=== PATIENT | female | born 1995 | race Caucasian/White ===

== ENCOUNTER 2020-02-09 21:18 | Inpatient (IN) ==
[2020-02-09 14:11] LABS: Candida DNA Not Detected (Not Detect); Gardnerella DNA Not Detected (Not Detect); Trichomonas DNA Not Detected (Not Detect)
[2020-02-09 14:43] LABS: Basophils % 0.2 %; Eosinophils # 0.1 K/mcL (0.0-0.6); Eosinophils % 0.5 %; Hematocrit 37.1 % (35.3-44.9); Hemoglobin 12.6 g/dL (11.5-15.4); Immature Granulocytes % 0.8 % (0-4); Lymphocytes # 1.6 K/mcL (0.6-4.6); Lymphocytes % 16.8 %; Mean Corpuscular Hemoglobin 31.3 pg (28.0-33.3); Mean Corpuscular Volume 92.1 fL (83.0-100.0); Mean Platelet Volume 8.9 fL (9.4-12.4); Monocytes # 0.4 K/mcL (0.0-1.3); Monocytes % 4.4 %; Neutrophils # 7.4 K/mcL (1.6-8.9); Platelet Count 240 K/mcL (140-400); Red Blood Count 4.03 M/mcL (3.82-4.97); Red Cell Distribution Width 14.2 % (11.5-14.5); Segmented Neutrophils % 77.3 %; White Blood Count 9.6 K/mcL (4.3-11.1)
[2020-02-09 14:51] LABS: Bacteria,Urine None Seen per hpf (None-Few); Bilirubin,Urine Negative (Negative); Blood,Urine Small (Negative); Clarity,Urine Clear (Clear); Color,Urine Yellow (Yellow); Glucose,Urine (UA) Normal (Normal); Hyaline Casts,Urine None Seen per lpf (None-Few); Ketones,Urine Negative (Negative); Leukocyte Esterase,Urine Small (Negative); Nitrite,Urine Negative (Negative); PH,Urine 7.5 pH Units (5.0-8.0); Protein,Urine Negative (Neg-Trace); RBC,Urine 0-3 per hpf (0-3); Specific Gravity,Urine 1.007 (1.010-1.025); Squamous Epithelial Cell,Urine Moderate per lpf (None-Few); Urobilinogen,Urine Normal (Normal); WBC,Urine 0-3 per hpf (0-3)
[2020-02-09 15:31] LABS: Activated Partial Thrombo Time 29.5 Seconds (26.0-36.0)
[2020-02-09 18:59] LABS: Amphetamine Screen,Urine Negative ng/mL (Cutoff=1000); Barbiturate Screen,Urine Negative ng/mL (Cutoff=200); Benzodiazepines Screen,Urine Negative ng/mL (Cutoff=200); Cannabinoid Screen,Urine Negative ng/mL (Cutoff = 50); Cocaine Screen,Urine Negative ng/mL (Cutoff= 300); Opiate Screen,Urine Negative ng/mL (Cutoff=300); Phencyclidine Screen,Urine Negative ng/mL (Cutoff=25)
[2020-02-09 21:09] LABS: Basophils % 0.3 %; Eosinophils % 0.3 %; Hematocrit 34.5 % (35.3-44.9); Hemoglobin 11.7 g/dL (11.5-15.4); Immature Granulocytes % 0.7 % (0-4); Lymphocytes # 1.9 K/mcL (0.6-4.6); Lymphocytes % 18.5 %; Mean Corpuscular HGB Conc 33.9 g/dL (31.6-35.5); Mean Corpuscular Hemoglobin 31.3 pg (28.0-33.3); Mean Corpuscular Volume 92.2 fL (83.0-100.0); Mean Platelet Volume 8.8 fL (9.4-12.4); Monocytes # 0.4 K/mcL (0.0-1.3); Monocytes % 3.8 %; Platelet Count 202 K/mcL (140-400); Red Blood Count 3.74 M/mcL (3.82-4.97); Red Cell Distribution Width 13.9 % (11.5-14.5); Segmented Neutrophils % 76.4 %; White Blood Count 10.4 K/mcL (4.3-11.1)
[~2020-02-09 21:18] MED LIST: Betamethasone Acet/SodPhos 30 MG/5 ML VIAL IM SCH; CeFAZolin 2,000 MG/50 ML BAG IVPB ONE; Famotidine 20 MG/2 ML VIAL IVP ONE; Metoclopramide 10 MG/2 ML VIAL IVP ONE; Ringers Solution, Lactated 1,000 ML IVC SCH
[2020-02-09] MEDS ORDERED: Oxytocin 20 units/ LR 1000 mL 20 UNIT/1,000 ML BAG IVC ONE (21:23)
[2020-02-09] MEDS ORDERED: *HR* Morphine Sulfate/PF 10 MG/10 ML AMPUL ONE (21:36)
[2020-02-09] MEDS ORDERED: *HR* FentaNYL (PF) 100 MCG/2 ML VIAL ONE (21:37)
[2020-02-09] MEDS ORDERED: *HR* Phenylephrine 10 MG/ML VIAL ONE (21:40)
[2020-02-09] MEDS ORDERED: Ringers Solution, Lactated 1,000 ML ONE (21:49)
[2020-02-09] MEDS ORDERED: Acetaminophen IV 1,000 MG/100 ML INFUS..BTL ONE (22:14)
[2020-02-09] MEDS ORDERED: *HR* Promethazine 25 MG/ML VIAL IVP PRN (22:17)
[2020-02-09] MEDS ORDERED: *HR* HYDROmorphone PF 0.5 MG/0.5 ML SYRINGE IVP PRN (22:17)
[2020-02-10] MEDS ORDERED: Ondansetron 4 MG/2 ML VIAL IVP PRN (00:15)
[2020-02-10] MEDS ORDERED: Oxytocin 20 units/ LR 1000 mL 20 UNIT/1,000 ML BAG IVC SCH (00:15)
[2020-02-10] MEDS ORDERED: Sennosides 8.6 MG TABLET PO PRN (00:15)
[2020-02-10] MEDS ORDERED: Metoclopramide 10 MG/2 ML VIAL IVP PRN (00:15)
[2020-02-10] MEDS: *HR* OxyCODONE/APAP 5/325 TABLET PO PRN ×3 (00:49→12:05)
[2020-02-10] MEDS: Ibuprofen 600 MG TABLET PO PRN ×2 (04:32→18:38)
[2020-02-10 05:59] LABS: Basophils % 0.1 %; Hematocrit 34.1 % (35.3-44.9); Hemoglobin 11.5 g/dL (11.5-15.4); Immature Granulocytes % 0.7 % (0-4); Lymphocytes # 0.8 K/mcL (0.6-4.6); Lymphocytes % 5.6 %; Mean Corpuscular HGB Conc 33.7 g/dL (31.6-35.5); Mean Corpuscular Hemoglobin 30.7 pg (28.0-33.3); Mean Corpuscular Volume 90.9 fL (83.0-100.0); Mean Platelet Volume 9.1 fL (9.4-12.4); Monocytes # 0.4 K/mcL (0.0-1.3); Monocytes % 2.5 %; Neutrophils # 12.8 K/mcL (1.6-8.9); Platelet Count 225 K/mcL (140-400); Red Blood Count 3.75 M/mcL (3.82-4.97); Red Cell Distribution Width 13.5 % (11.5-14.5); Segmented Neutrophils % 91.1 %; White Blood Count 14.1 K/mcL (4.3-11.1)
[2020-02-10] MEDS: Simethicone 80 MG TAB.CHEW PO PRN ×2 (08:34→18:38)
[2020-02-10] MEDS: Prenatal Vit/FA 1 EACH TABLET PO SCH (08:34)
[2020-02-10] MEDS: Acetaminophen 325 MG TABLET PO PRN (21:35)
[2020-02-11] MEDS: Ibuprofen 600 MG TABLET PO PRN ×2 (05:19→13:55)
[2020-02-11 08:03] VITALS: BP 120/74
[2020-02-11] MEDS: Prenatal Vit/FA 1 EACH TABLET PO SCH (08:30)
[2020-02-11] MEDS: Acetaminophen 325 MG TABLET PO PRN ×2 (08:30→17:59)
[2020-02-11] MEDS ORDERED: Lanolin 7 G OINT...G. TP PRN (17:57)
== END 2020-02-11 18:22 | disposition home or self-care (01) ==
LOC: 1NENULAB → 1NENUOBS 02-10 01:08
PROVIDERS: ADMIT Obstetrics & Gynecology; ATTEND Obstetrics & Gynecology